=== PATIENT | male | born 2000 | race Two or more races ===

== ENCOUNTER 2024-06-22 22:06 | Emergency (ER) | payer OTHER ==
[2024-06-22 22:12] VITALS: BP 138/67; PULSE 70; RESP 18; TEMP 97.8; BMI 28.3
== END 2024-06-23 01:37 | disposition home or self-care (01) ==
LOC: JER 22:06 → JERFT 22:06 → JER 06-23 01:37
DX: S50.11XA Contusion of right forearm, initial encounter (principal); V00.321A Fall from snow-skis, initial encounter
CPT/HCPCS: 73090-TC-RT-FY; 73110-TC-RT-FY; 73130-TC-RT-FY; 99283-25